=== PATIENT | female | born 1955 | race Caucasian/White ===

== ENCOUNTER 2016-03-28 05:36 | Day surgery (SDC) | payer OTHER ==
--- NOTE | 2016-03-24 08:35 | PCM.HPSURG ---
Subjective Date of Service: Mar 13, 2016 Referring Provider: Admitting Physician: Primary Care Physician: Rosalba Stearns MD Attending Physician: Jack Vera MD Chief Complaint SEE BELOW History of Present Illness Patient: Rosalinda Guerrero Date of : 1955 Visit Type: Pre Op Visit Date: 03/13/2016 10:45 AM Historian: self This 60 year old female presents for Preop MIS Ty. Segmental Decompress L2-4 + Fat Graft. History of Present Illness: 1. Preop MIS Ty. Segmental Decompress L2-4 +Fat Graft Rosalinda Guerrero 60 year old female referred by Primary Care Provider (PCP) Dr. Rosalba Stearns M.D. who presents today's date 03/13/2016 for a preoperative type of appointment concerning the decision for surgery involving METrx or minimal access surgery involving bilateral segmental decompression L2-3 & L3-4 levels from the left side & harvests of subcutaneous fat for epidural graft from separate incision secondary to a diagnosis of lumbar spinal stenosis with neurogenic claudication with related complaints of severe, intractable, & debilitating lower back pain radiating to the left >right lower extremities with numbness, & paresthesias worse with standing up straight or walking & better leaning forward or sitting down. The patient presented for reevaluation with Dr. Jack Vera M.D. on 2016 regarding progressive lower back and bilateral leg pain left greater than right. Patient's MRI scan showed evidence of severe stenosis at L2-3 and L3 4. She got marked relief for surgery at the L3-4 level with the second injection did not provide is significant relief as the first. She has undergone right knee surgery and is doing well from that surgery has been able to return back to work. At this time she would like to proceed neurosurgery on her spine at this time. According to Dr. Vera the patient has significant symptomatic lumbar spinal stenosis having failed conservative treatment indicating that the patient is a candidate for minimally invasive bilateral lumbar spinal surgical decompression at the L2-3 & L3-4. We discussed all the risks and benefits associated with surgery as well as reasonable expectations with regards to surgical outcomes & patient elected to proceed with surgery as planned. The patient denies any related complete or acute loss of control of bowel or bladder function, saddle paresthesia or anesthesia. The patient has a pertinent positive past medical, surgical and social history for cervical spinal decompression and fusion, previous lumbar decompression, right knee meniscectomy, overweight, chronic joint pain, depression, & 2 alcohol drinks per week. The patient's related complaints have been a serious detriment to their happiness and activities of daily living. Having failed conservative treatment the patient presents today for their decision for surgery appointment involving METrx or minimal access surgery involving bilateral segmental decompression L2- 3 & L3-4 levels from the left side & harvests of subcutaneous fat for epidural graft from separate incision for treatment of lumbar spinal stenosis with neurogenic claudication; related to severe, intractable, & debilitating lower back pain radiating to the left >right lower extremities with numbness, & paresthesias worse with standing up straight or walking & better leaning forward or sitting down. The procedure is scheduled to be performed by Dr. Jack Vera M.D. on 03/28/2016. Problem List: Problem Description Spinal stenosis of lumbar region Medical/Surgical/Interim History Reviewed, no change. Last detailed document date:03/13/2016. Family History: Reviewed, no changes. Last detailed document date:03/13/2016. Social History: Tobacco use reviewed. Reviewed, no changes. Last detailed document date: 03/13/2016. Allergies: Ingredient Reaction Medication Name Comment SULFA (SULFONAMIDE ANTIBIOTICS) Unknown CODEINE Nausea/Vomiting Reviewed, no changes. Review of Systems System Neg/Pos Details MS Positive Back pain, Bone/joint symptoms. MS Negative Muscle weakness. Negative Dysuria, urge incontinence and urinary incontinence. Eyes Negative Double vision and vision loss. ENMT Negative Hearing loss. Endocrine Negative Weight gain and weight loss. Integumentary Negative Mrsa and rash. Respiratory Negative Dyspnea, apnea and wheezing. Vivek/Lymph Negative Blood clots. Constitutional Negative Chills and fever. Cardio Negative Chest pain, irregular heartbeat/palpitations, leg swelling and pacemaker. GI Negative Abdominal pain, constipation, diarrhea, nausea and vomiting. Neuro Negative Dizziness, headache and seizures. Psych Negative Anxiety and depression. Vital Signs Height Time ft in cm Last Measured Height Position % 10:14 AM 5.0 7.00 170.18 03/13/2016 Weight/BSA/BMI Time lb oz kg Context % BMI kg/m2 BSA m2 10:14 AM 218.20 98.974 dressed without shoes 34.17 Blood Pressure Time BP mm/Hg Position Side Site Method Cuff Size 10:14 AM 110/68 sitting left arm manual adult large Temperature/Pulse/Respiration Time Temp F Temp C Temp Site Pulse/min Pattern Resp/ min 10:14 AM 98.0 36.7 temporal 66 regular 20 Pulse Oximetry/FIO2 Time Pulse Ox (Rest %) Pulse Ox (Amb %) O2 Sat O2 LPM Timing FiO2 % L/min Delivery Method 10:14 AM 96 Pain Scale Time Pain Score Method 10:14 AM 7/10 Numeric Pain Intensity Scale Measured By Time Measured by 10:14 AM Yeni Panchal MA Physical Exam Exam Findings Details Comments Gen.: Patient was examination and appears to be a moderate muscle skeletal discomfort HEET: Normal with full range of motion Chest : Clear P and A Heart: Regular rate and rhythm Abdomen; soft non-tender normal bowel sounds Ext.: 5/5 strength. Numbness in the L3 and L4 distribution. There is diminished patellar reflex. Negative straight leg maneuver Back: There is some mild involuntary paraspinous muscle spasm. Radiographic imaging: Review the patient's MRI scan of the lumbar spine shows evidence of severe lumbar spinal stenosis at L2-3 and L3 4. Assessment/Plan # Detail Type Description 1. Assessment Lumbar stenosis with neurogenic claudication (M48.06). 2. Assessment Preoperative examination (Z01.818). Patient Plan We including your Attending Surgeon have discussed the risks and benefits associated your scheduled procedure which you have verbally acknowledged understanding including but not limited to the possibility of an outcome that we are unable to predict or was not mentioned. 1. You are scheduled for a METrx or minimal access surgery involving bilateral segmental decompression L2-3 & L3-4 levels from the left side & harvests of subcutaneous fat for epidural graft from separate incision with Dr. Jack Vera M.D. at [facility] on 03/28/2016. 2. Check in time is 6 AM. Also please ignore instructions below if told otherwise by your preadmission nurse or if you do not take the medications listed below. 3. Nothing to eat after midnight the night before surgery. You may take all of your "approved" medications with small sips of water. Remember to take your a.m. hypertension medication if it is a beta liana and ends in "olol. Otherwise ask your doctor if you need to hold your a.m. hypertension medication. 4. No aspirin, ibuprofen, Naprosyn, or other NSAIDs starting 7 days prior to surgery. 5. Please stop Warfarin/Coumadin or other blood thinners such as Plavix, Aggrenox, or Xarelto 7 days prior to your surgical procedure and follow specific instructions from your prescribing provider. 6. Please stop Lovenox bridging in the morning one day prior to procedure. 7. Please stop Suboxone/Buprenorphine at least 4 days prior to procedure. 8. Go to the hospital today to get her preoperative testing done. Take the order form to the surgery desk on the second floor of the hospital, [facility] (main entrance next to the emergency entrance). I will notify you if there is any test results that require further workup prior to surgery. 9. Follow the instructions you were given today, use the cleansing cloths the night before as well as the morning of her surgery. 10. If you are prescribed inhalers, CPAP or BiPAP machines you use at home bring along with you to the hospital. 11. ONLY If you take medications for Diabetes: If you have an insulin pump continue lowest (typically night-time) basal rate into the a.m. If you do not have a pump check h your a.m. blood sugar and hold insulin if BS less than 100. If you are taking long-acting, intermediate acting (NPH) or 70/30 preparation : Take half on day of procedure. If you are taking ultra long-acting insulin such as glargine, Lantus either at night or in the a.m. continue as scheduled ( including day of surgery). If you take short acting regular insulin (insulin not delivered via pump) discontinue on day of procedure. 12. Please call if you have any questions before your surgery: [phone]. Today's instructions/counseling include(s) Pre-operative instructions given to the patient and or legal reimbursement representative(s) orally and in writing. 13. Our office will contact you if there are any test results that require further workup prior to surgery. Provider Plan The patient's history and examination as well as radiological findings were reviewed with Dr. Jack Vera M.D. and conveyed the patient in detail. The findings are consistent with lumbar spinal stenosis with neurogenic claudication and are most likely the cause of the patient's severe, intractable , & debilitating lower back pain radiating to the left >right lower extremities with numbness, & paresthesias worse with standing up straight or walking & better leaning forward or sitting down. The patient has failed extensive conservative treatment for this condition. The treatment options were discussed with the patient. The options include attempt to live with the condition, reattempt conservative treatment, try a pain management intervention / injection or consider a surgical intervention. We are not extremely optimistic that further conservative treatment, pain management intervention and/or injection will adequately resolve the patient's symptoms of severe, intractable, & debilitating lower back pain radiating to the left >right lower extremities with numbness, & paresthesias worse with standing up straight or walking & better leaning forward or sitting down. Therefore we recommend METrx or minimal access surgery involving bilateral segmental decompression L2-3 & L3-4 levels from the left side & harvests of subcutaneous fat for epidural graft from separate incision. The patient was provided/offered educational materials pertaining to their diagnosis and the above discussed procedure. We discussed the risks and benefits associated with this surgery. A spine model was used to explain the nature of this type of surgery. The risk of the required anesthesia was also mentioned including but not limited to organ failure such as heart attack, pneumonia and stroke even . The risk of this type of surgery was also mentioned. Including but not limited to an unsuccessful outcome, residual symptoms, referred or radiating posterior spinal myofascial inflammatory pain or spasm, post operative instability, instrumentation failure, sensory changes, blood loss, blood clots, wound infection, spinal cord or nerve damage, CSF or lymph leak, damage to neighboring structures such as the abdominal vasculature, bowel, ureter, and bladder resulting in temporary or permanent dysfunction, even disability, paralysis, and . The recovery of this type of surgery was also mentioned. The chances for improvement of the neurogenic claudication related symptomatology at one year is 70%. The chances of improvement of local mechanical lower back pain is 50%. The patient verbalized understanding all the risks and benefits, knowing that it is impossible to predict or guarantee every surgical outcome; and would like to proceed with the above discussed procedure anyways. Surgery is scheduled for 03/28/[address] [facility] preoperative screening tests, medicine restrictions, and logistical protocols apply. Any preoperative testing is within normal limits to undergo the above discussed procedure unless otherwise noted in the medical record. Medications (added, continued or stopped this visit): Start Date Medication Directions Stop Date 03/27/2016 baclofen 10 mg tablet take 1 tablet by oral route every 8 hours as needed for spasm 03/15/2015 meloxicam 7.5 mg tablet take 1 tablet by oral route 2 times every day with food prn hand pain 02/29/2016 meloxicam 7.5 mg tablet take 1 tablet by oral route 2 times every day 03/27/2016 Percocet 5 mg-325 mg tablet take 1 - 2 tablet by oral route every 4 - 6 hours as needed for pain Prozac take 2 capsule by oral route every day Vitamin B-12 Vitamin D3 1,000 unit capsule 03/15/2015 Voltaren 1 % topical gel apply (2G) by topical route 2 times every day to the affected area(s) Counseling/Educational Factors: Counseling / educational factors reviewed. Counseling / educational factors reviewed. This is a visit of 60 minutes. 50 minutes were spent counseling. The patient was checked out at 11:55 AM. This document may have been created using voice recognition software or other electronic means and may contain inadvertent speaking unit assembler errors. Provider: Gordy BROUSSARD 03/13/2016 12:26 PM Document generated by: Gordy Mtz 03/13/2016 12:25 PM CC Providers: [facility]ba Roberto [facility] [phone] [id number] [place] [address] w kim reese i arlene i michael s Delmi romeo Allergy Allergies: Coded Allergies: Sulfa (Sulfonamide Antibiotics) (Verified Allergy, Unknown, 10/21/15) codeine (Verified Allergy, Unknown, 10/21/15) Social History Hx Alcohol Use: Yes (OCCASIONALLY) Hx Substance Use: No PMH HEENT History HEENT History: Denies:: Abnormal Airway Cataracts Difficult Intubation Dysphagia Hearing Problem Sinus Problem TMJ Cardiovascular History History of Heart Problems?: No Cardiovascular History: Denies:: AICD Atrial Fibrillation Cardiac Surgery Chest Pain Congestive Heart Failure Edema Heart Murmur Hypertension Irregular Heartbeat Pacemaker Respiratory History of Respiratory Problem: Yes Respiratory History: Positive for:: Asthma (INHALERS) Denies:: COPD Emphysema Oxygen Administration Pneumonia Tuberculosis Use of C-PAP Machine Neurological History Neurological History: Denies:: CVA Dizziness Headaches Multiple Sclerosis Parkinson's Disease Seizures Gastrointestinal History HX of GI Problems?: No Gastrointestinal History: Denies:: Cirrhosis Gastroesphageal Reflux Gastrointestinal Bleeding Heartburn Hepatitis Hiatal Hernia Rectal Bleeding Genitourinary History Hx of Gu Problems?: No Genitourinary History: Denies: Kidney Stones Urinary Tract Infection Female/Male History Reproductive History Female: Denies: Currently ? (hysterectomy) Problems with Breasts? Skin History Skin History: Denies:: History Skin Disorders? Pressure Ulcers Musculoskeletal History Hx Musculoskeletal Problems?: Yes Musculoskeletal History: Positive for:: Back Injury (lumbar stenosis- failed TAHIR- left leg more sx than right, prior sx) Musculoskeletal Trauma (right knee current admission problem) Denies:: Degenerative Joint Joint Replacement Systemic Lupus Psycho Social History Psycho Social History: Positive for:: Hx Depression (MEDS FOR CONTROL) Other History Hx Any Other Health Problems?: Yes Other History: Denies:: Cancer Thyroid Disease Diabetes: No Social History Hx Alcohol Use: Yes (OCCASIONALLY)Hx Substance Use: No Smoking Status: Former Smoker Gordy Mtz PA-C Mar 24, 2016 08:35
[2016-03-28] VITALS (15 sets, daily range): BP systolic 91–131; BP diastolic 50–103; PULSE 59–85; RESP 13–20; O2SAT 92–100
[~2016-03-28] VITALS: Ht 170.2 cm; Wt 98.1 kg
[2016-03-28] MEDS: Lactated Ringer's 1,000 ML IV SCH ×3 (05:00→07:39)
[~2016-03-28 05:36] MED LIST: ALBU8.5H2 INHALATION; BACL10TA PO; BECL8.7A6 INHALATION; Bacitracin 50,000 unit Inj IRRIGATION ONE; Bupivacaine Liposome 1.3% 20 mL Inj INFILTRATE ONE; CHOL10008 PO; CYAN500T53 SL; CeFAZolin Inj 2 GM in IV Premix 1 EACH IV ONE; DICL100G8 TOPICAL; FLUO10CA30 PO; MELO-259 PO; OXYC1TAB24 PO; Thrombin Powder 5,000 Unit TOPICAL ONE
[2016-03-28] MEDS ORDERED: Propofol 10,000 mCg/mL 20 mL Inj ONE (05:37)
[2016-03-28] MEDS ORDERED: Ondansetron 2 mg/mL 2 mL Inj ONE (05:37)
[2016-03-28] MEDS ORDERED: Dexamethasone 4 mg/mL Inj ONE ×2 (05:37)
[2016-03-28] MEDS ORDERED: Ketamine 10 mg/mL 20 mL Inj ONE (05:37)
[2016-03-28] MEDS ORDERED: EPHEDrine/NS 5 mg/mL 5 mL Syringe ONE (05:37)
[2016-03-28] MEDS ORDERED: Glycopyrrolate 0.2 mg/mL 5 mL Inj ONE (05:37)
[2016-03-28] MEDS ORDERED: Neostigmine 1 mg/mL 5 mL Inj ONE (05:37)
[2016-03-28] MEDS ORDERED: fentaNYL-PF 50 mCg/mL 2 mL Inj ONE (05:37)
[2016-03-28] MEDS ORDERED: Rocuronium 10 mg/mL 5 mL Inj ONE (05:37)
[2016-03-28] MEDS ORDERED: CeFAZolin Inj 2 gm / 50mL D5W IV ONE (05:55)
[2016-03-28] MEDS ORDERED: Bacitracin 50,000 unit Inj ONE (07:21)
[2016-03-28] MEDS ORDERED: Bupivacaine Liposome 1.3% 20 mL Inj ONE (07:21)
[2016-03-28] MEDS ORDERED: Thrombin Powder 5,000 Unit TOPICAL ONE ×2 (07:21→09:43)
--- NOTE | 2016-03-28 07:31 | PCM.HPANE ---
Patient Data Date of Service: Mar 28, 2016 Surgeon Admitting Provider: Attending Provider:Jack Vera MD Primary Care Physician:Rosalba Stearns MD Other Provider: Reason for Visit Lumbar Stenosis With Neurogenic Claudication Ht/WT & BMI Height (Feet): 5 Height (Inches): 7.00 Weight (Kilograms): 98.1 Body Mass Index 33.00 Allergies Coded Allergies: Sulfa (Sulfonamide Antibiotics) (Verified Allergy, Unknown, UNKNOWN, ) codeine (Verified Adverse Reaction, Severe, N&V, 03/24/16) Past Anesthesia History Anesthesia History: Positive for:: Anesthesia Reactions (PONV), Denies:: Abnormal Airway, Difficult Intubation, Fam Anesthesia Reaction, Fam Malignant Hypertherm, Malignant Hyperthermia Diabetes History Hx Diabetes?: No Current Bedside Blood Glucose: 96 MRSA MRSA: No Medications Home Meds Incl Beta Jeremy: No Reported Medications Baclofen 10 Mg [id number] Mg PO TID PRN PRN Ref 0 03/24/16 oxyCODONE-Acetaminophen 5-325 mg 1 Each Tablet1-2 Tab PO Q4-6H PRN For Pain Ref 0 03/24/16 Diclofenac Gel (Voltaren Gel)100 Gm Tube1 Applic TOPICAL BID #1 TUBE 01/10/16 Cholecalciferol (Vitamin D3) (Vitamin D3)1,000 Unit Tab.chew1,000 Unit PO DAILY 01/10/16 Cyanocobalamin (Vitamin B-12) (Vitamin B-12)500 Mcg Tab.subl1,000 Mcg SL DAILY 01/10/16 Fluoxetine (Prozac)10 Mg [id number] Mg PO DAILY Ref 0 01/10/16 Meloxicam 7.5 Mg Tablet7.5 Mg PO BID 30 Days Ref 0 01/10/16 Beclomethasone Dipropionate (Qvar)8.7 Gm Aer.w.adap1 Puff INHALATION BID #8.7 GM 01/10/16 Albuterol HFA (Proair HFA)8.5 Gm Hfa.aer.ad2 Puffs INHALATION Q4H PRN For Shortness of Breath #1 INHALER 01/10/16 History History of ENT Problems?: No HEENT History: Denies:: Abnormal Airway Cataracts Difficult Intubation Dysphagia Hearing Problem Sinus Problem TMJ Denture Type: Partial- Upper Hx of Heart Problems?: No Cardiovascular History: Positive for:: Irregular Heartbeat (Ventricular Trigeminy by 12l preop. Pt denies awareness or systemic Sx) Denies:: AICD Atrial Fibrillation Cardiac Surgery Chest Pain Congestive Heart Failure Edema Heart Murmur Hypertension Pacemaker Hx of Respiratory Problem?: Yes Respiratory History: Positive for:: Asthma (CTA DOS) Use of Inhalers / NEBS Denies:: COPD Emphysema Oxygen Administration Pneumonia Tuberculosis Use of C-PAP Machine Hx Neurologic Problems?: Yes Neurological History: Denies:: CVA Dizziness Headaches Multiple Sclerosis Parkinson's Disease Seizures Other Neurological Pertinent: C/OF PERIPHERAL POLYNEUROPATHY Hx of GI Problems?: Yes Gastrointestinal History: Denies:: Cirrhosis Gastroesphageal Reflux Gastrointestinal Bleeding Heartburn Hepatitis Hiatal Hernia Rectal Bleeding Other GI Pertinent History: S/P GASTRIC BYPASS Hx of Problems?: No Genitourinary History: Denies:: Kidney Stones Urinary Tract Infection Female Hx: Denies:: Currently Problems with Breasts? Skin History: Denies:: History Skin Disorders? Pressure Ulcers Hx Musculoskeletal Problems?: Yes Musculoskeletal History: Positive for:: Back Injury (S/P FAILED TAHIR'S,ACDF, LUMBAR DECOMPRESSION) Musculoskeletal Trauma (S/P RT KNEE MENISECTOMY,SHOULDER RPR) Denies:: Degenerative Joint Joint Replacement Systemic Lupus Hx of Psycho/Social Problems?: Yes Psycho Social History: Positive for:: Hx Depression Hx Surgeries?: Yes (BACK , NECK, SHOULDER, HYST, CTS BILAT, GASTRIC BYPASS, RT KNEE MENISECTOMY) Hx Any Other Health Problems?: Yes Other History: Positive for:: Thyroid Disease (BENIGN THYROID NODULE S/P NEEDLE BX) Denies:: Cancer Endocrine Disease Hospitalization History Blood Transfusions: Denies:: Blood Transfusions Hx Diabetes: NoBedside Blood Glucose: 96 Hx Alcohol Use: YesAlcoholic Drinks Per Day: 2/WEEKHx Substance Use: No Smoking Status: Former Smoker Have You Smoked inLast 12 mo: No Stop/Bang Treated for Sleep Apnea?: No Do You Have a CPAP Machine?: No S-Snoring: Do You Snore Loudly: No T-Tired: feel tired, fatigued: No O-Obsered: Observed not breath: No P-Blood Pressure: treated: No B- Body Mass Index > 35 kg/m2: No A- Age over 50: Yes N- Neck Large Circumference: No G- Gender Male: No NAZANIN Total Score: 1 NAZANIN Risk Assessment: Low Risk, <3 Yes Risk Assessment Category Category 1A: Patient has history of documented sleep apnea, and HAS NOT received any narcotic, sedative or anesthesia administration during this stay. Category 1B: Patient has history of documented sleep apnea, and HAS received any narcotic , sedative or anesthesia administration during this stay Category 2: Patient has SUSPECTED Obstructive Sleep Apnea, and HAS received any narcotic , sedative or anesthesia administration during this stay. Category 3: Patient has SUSPECTED Obstructive Sleep Apnea and HAS NOT received narcotic, sedative or anesthesia administration during this stay. Category 4: Outpatient in Procedural Areas with known sleep apnea or who screen positive for High Risk via the STOP/BANG questionnaire. Exam Exam Vital Signs Vital Signs Date Time Temp Pulse Resp B/P Pulse Ox O2 Delivery O2 Flow Rate FiO2 03/28/16 06:21 36.4 64 18 115/75 95 Room Air General Appearance: Alert, Oriented X3, Cooperative, No Acute Distress HEENT/AIRWAY: MP 2 (Missing Incisor, Right lateral incisor, canine caps) Lungs: Clear to Auscultation, Normal Air Movement Heart: Exam Unremarkable, Normal S1, Normal S2, No Murmurs/Rubs/Gallops Meds/Labs/Diagnostics Admission Meds Current Medications Lactated Ringer's (Lr) 1,000 ml @ 120 mls/hr Q8H20M IV Last administered on 05:42; Start 03/28/16 at 05:00; Stop 03/28/16 at 13:19 Scopolamine (Transderm-Scop Patch) 1.5 mg STK-MED ONCE TOPICAL Last administered on 03/28/16 07:17; Start 03/28/16 at 07:13; Stop 03/28/16 at 07:16 ; Status DC Bedside Blood Glucose: 96 Plan Impression Patient chart reviewed, patient interviewed and anesthestic plan with risks, benefits, and alternatives discussed, and informed consent obtained. NPO Status: 10pm ASA Physical Status: ASA2 Mod Systemic Disease Anesthetic Plan: GA Bene/Risks/Altern/Consents: Yes HP Complete Prior to Induction: Yes (TIVA planned due to PONV Hx) Donny Dunham DO Mar 28, 2016 07:31
[2016-03-28] MEDS ORDERED: Bupivacaine-MPF 0.25%/EPI 30 mL Inj INJ ONE (08:14)
--- NOTE | 2016-03-28 08:41 | DRSVH ---
PROCEDURE: X-RAY LUMBAR SPINE, 2 OR 3 VIEW INDICATIONS: L2-3/L3-4 DECOMPRESSION TECHNIQUE: 2 views of the lumbar spine were acquired. COMPARISON: None. FINDINGS: Bones: AP and lateral spot images in surgery shows a posterior plate marker at the L3-4 disc level. T his was called to Dr. Vera in surgery at 0837 hrs. on 03/28/2016 and the images appropriately labeled . IMPRESSION: Localization images in surgery Dictated by: José Miguel Cheng M.D. on 03/28/2016 at 8:36 Approved by: José Miguel Cheng M.D. on 03/28/2016 at 8:39
[2016-03-28] MEDS ORDERED: Lactated Ringer's 1,000 ML IV SCH (08:46)
[2016-03-28] MEDS ORDERED: Lactated Ringer's 500 ML IV PRN (08:46)
[2016-03-28] MEDS ORDERED: EPHEDrine Sulfate 50 mg/mL Inj IVPUSH PRN (08:50)
[2016-03-28] MEDS ORDERED: HYDROmorphone 1 mg/mL Inj IVPUSH PRN ×2 (08:50→11:20)
[2016-03-28] MEDS ORDERED: fentaNYL-PF 50 mCg/mL 2 mL Inj IVPUSH PRN (08:50)
[2016-03-28] MEDS ORDERED: Ondansetron 2 mg/mL 2 mL Inj IVPUSH PRN ×3 (08:50→11:20)
[2016-03-28] MEDS ORDERED: Phenylephrine 10,000 mCg/mL Inj IVPUSH PRN (08:50)
[2016-03-28] MEDS ORDERED: Dexamethasone 4 mg/mL Inj IVPUSH PRN (08:50)
[2016-03-28] MEDS ORDERED: Labetalol 5 mg/mL 4 mL Inj IV PRN (08:50)
[2016-03-28] MEDS ORDERED: Atropine 0.4 mg/mL Inj IVPUSH PRN (08:50)
[2016-03-28] MEDS ORDERED: MetoCLOpramide 5 mg/mL 2 mL Inj IVPUSH PRN (08:50)
[2016-03-28] MEDS ORDERED: Sodium Chloride Bacteriostatic 30 mL Inj INJ ONE (08:57)
[2016-03-28] MEDS ORDERED: Lactated Ringer's 1,000 ML IV ONE (10:31)
[2016-03-28] MEDS ORDERED: Magnesium Hydroxide 10 mL Oral Concentration PO PRN (11:20)
[2016-03-28] MEDS ORDERED: Promethazine Inj 12.5 MG in Dextrose 5%-Pha MIX 50 ML IV PRN (11:20)
[2016-03-28] MEDS ORDERED: Polyethylene Glycol (PEG) 17 Gm Powder PO PRN (11:20)
[2016-03-28] MEDS ORDERED: Sodium Biphos-Phos 133 mL Enema RECTAL PRN (11:20)
[2016-03-28] MEDS ORDERED: Senna-Docusate 8.6-50 mg Tablet PO PRN (11:20)
[2016-03-28] MEDS ORDERED: hydrOXYzine Pamoate 25 mg Capsule PO PRN (11:20)
[2016-03-28] MEDS: Acetaminophen IV 1,000 MG in IV Premix 1 EACH IV SCH ×3 (11:20→23:23)
--- NOTE | 2016-03-28 11:24 | PCM.ANEP1 ---
Post Anesthesia Phase 1 PACU Phase 1 Assessment Date of Service: Mar 28, 2016 Vital Signs Vital Signs Date Time Temp Pulse Resp B/P Pulse Ox O2 Delivery O2 Flow Rate FiO2 03/28/16 06:21 36.4 64 18 115/75 95 Room Air Anesthetic Administered: GA Level of Alertness: Drowsy, not talking RENE's with Equal Strength: Yes (Apparently aty baseline with 4-limb spontaneous motion) Pain: No Nausea or Vomiting: No Oxygen Delivery: Simple Mask (6l) Lungs: Clear to Auscultation, Normal Air Movement Dermatome Level: Full Sensation (@ baseline) Donny Dunham DO Mar 28, 2016 11:24
[2016-03-28] MEDS: Dexamethasone 4 mg/mL Inj IVPUSH SCH ×3 (11:55→20:30)
--- NOTE | 2016-03-28 13:09 | PCM.ANEP2 ---
Post Anesthesia Evaluation ASA/CMS Post Anesthesia Date of Service: Mar 28, 2016 VS in Patient's Normal Range?: Yes Resp Stable; Airway Patent?: Yes CV Function & Hydration Stable: Yes Mental Status Recovered?: Yes Pain control Satisfactory?: Yes N/V Control Satisfactory?: Yes Donny Dunham DO Mar 28, 2016 13:09
--- NOTE | 2016-03-28 14:59 | NUR ---
Post op Transfer Pt was admitted to [facility] room 1026 at 1459 via pt bed. A&Ox3. Pain rated at 6/10. Pt states that pain is at a tolerable level. Pt O2 sats WNL on RA. Pt up to the bathroom to void FWW SBA. Tolerated activity okay. NANCY drain to suction. Dressings on back are C/D/I. Care continues.
[2016-03-28] MEDS ORDERED: Albuterol 2.5 mg/3 mL Inhalation Solution NEB PRN (16:00)
[2016-03-28] MEDS: 0.9% Sodium Chloride 1,000 ML IV SCH ×2 (16:13→20:26)
[2016-03-28] MEDS: CeFAZolin Inj 2 GM in IV Premix 1 EACH IV SCH ×2 (17:23→23:45)
--- NOTE | 2016-03-28 17:50 | NUR ---
Diet Pt tolerating pudding, crackers and water well. Advanced dinner to general diet. Encouraged pt to go slow. Pt denies any nausea and does not exhibit any s/s of aspiration.
[2016-03-28] MEDS: Senna-Docusate 8.6-50 mg Tablet PO SCH (20:28)
[2016-03-28] MEDS: Fluticasone 100 mCg Inhaler INHALATION SCH (20:29)
--- NOTE | 2016-03-28 20:37 | NUR ---
Level of activity The patient states she has a new onset of weakness and numbness in her left leg after her surgery. The patient's gait is unsteady, requires 1 person moderate assist to the bedside commode. Notified RN about new symptoms in leg.
--- NOTE | 2016-03-28 20:57 | NUR ---
Neuro Pt c/o left leg numbness. She is able to walk but her foot feels "strange". Pt is aware of hot/cold/pressure to her left foot but she states it is numb. I spoke to Dr Huddleston re her complaint. No changes to plan of care. He stated that the numb feeling can happen post operatively when the pain is decreased Pt confirmed that her pain is significantly less WIll cont to monitor. Care ongoing
--- NOTE | 2016-03-28 21:00 | NUR ---
Blood pressure Pt's blood pressure is 98/60. Restarted IVF at orginal rate of 110cc/hr of NS. ENcouraged pt to drink fluids. She is asymptomatic. Care ongoing
[2016-03-29 00:45] VITALS: BP 103/68; PULSE 62; RESP 20; O2SAT 96
--- NOTE | 2016-03-29 00:53 | OP ---
[address] [address] OPERATIVE REPORT PATIENT: ANALIA HENDERSON : 1955 MR#: [id number] ADMIT: 03/28/2016 JOB ID: [id number] DATE OF SURGERY: 03/28/2016 PREOPERATIVE DIAGNOSIS(ES): Symptomatic lumbar spinal stenosis, left greater than right, secondary to acquired spinal lateral recess stenosis, L2-L3 and L3-L4. POSTOPERATIVE DIAGNOSIS(ES): Symptomatic lumbar spinal stenosis, left greater than right, secondary to acquired spinal lateral recess stenosis, L2-L3 and L3-L4. OPERATIVE PROCEDURE: 1. METRx microscopic bilateral lumbosacral decompression, L2-L3 and L3-L4, with lateral recess decompression of the L2, L3, and L4 nerve roots bilaterally. Approach from the left. 2. Placement of epidural fat graft obtained from a separate incision. 3. Intraoperative fluoroscopy less than one hour. SURGEON: Jack Vera MD DIGITAL ANALYST: Gordy Mtz PA-C ANESTHESIA: General endotracheal. COMPLICATIONS: None. ESTIMATED BLOOD LOSS: Approximately 50 cc. The patient did not require any transfusion. DRAINS: #10 Niuean drain. SPECIMENS: None. TOURNIQUET: None. FINDINGS AT THE TIME OF SURGERY: Severe acquired spinal and lateral recess stenosis at the L3-L4 level, and modest to severe at L2-L3. Bilateral lumbosacral decompression was performed at both levels, with lateral recess decompression at the L2 and L3 nerve roots bilaterally. No evidence of any CSF leak or durotomy. There was evidence of bulging of the disc. No diskectomy was required. INDICATION: A 60-year-old female, who has been having increasing lower back and bilateral leg pain, worse with standing and walking, made better with sitting down. After failure of conservative measures, the patient was seen for a neurosurgical evaluation and felt to have symptomatic lumbar spinal stenosis, most prevalent at the L3-L4 level. She has had previous decompression at 4-5. The patient had epidural steroid injection with Dr. Vega, which provided significant improvement of her symptoms. She subsequently then wanted to proceed with surgery, and admitted at this time for minimal access bilateral lumbosacral decompression at the L2-L3 and L3-L4 levels. Chances for symptomatic improvement would be 70% at one year. The patient acknowledged understanding and wanted to proceed. OPERATION/PROCEDURE: The patient was identified in the preop area. L2-L3 and L3-L4 were marked on the patient's back on the left side. The patient's history, examination, medications, allergies, and labs were reviewed. She was then taken to the operating room where she underwent general endotracheal anesthesia without complications. She was given 2 g of just Ancef. ABIs were placed on the lower extremities. The patient was seated in the prone position on the Shawn frame in a fixed position. The patient's extremities were properly padded in position. The lower back was then prepped and draped in the usual sterile fashion for a minimal access decompression. After appropriate prepping and draping, the appropriate time-out of the OR was performed, confirming the patient's name, date of , planned procedure, and the presence of appropriate instrumentation. The patient's NAZANIN, beta block, diabetic and MRSA status was reviewed. Antibiotic administration, DVT prophylaxis and appropriate imaging on the screen was confirmed. The skilled assistance of the PA, Gordy Mtz, was necessary for successful completion of the case. He was essential for the proper positioning, retraction of the thecal sac and nerve roots, and general safety of the patient. Once the time-out was completed, a spinal needle was inserted adjacent to the spinous process of L2-L3 on the left. Intraoperative fluoroscopy verified the level. It was then marked on the patient's back. It was then moved to the L3-L4 level and verified fluoroscopically, and marked on the back. The needle was removed, and the left paramedian and soft tissue was infiltrated with 0.25% Marcaine with epinephrine. After infiltration, a left paramedian incision was carried down through the skin and subcutaneous tissue. Subcutaneous fat grafts were obtained. A 2nd incision was made, carried down through the skin and subcutaneous tissue, down to the level of the lumbodorsal fascia. First blunt dilating operating tube was then placed at the L3-L4 level. Sequential dilations were taken until a 70 x 22 mm operating tube was over the L3-L4 disc space on the left. This was then secured using articulating arm. AP views showed that the operating tube was adjacent to the spinous process of L3 and L4. L3-L4 was verified by Radiology. Once fluoroscopy was removed, the operating microscope was brought into place. Overlying soft tissue was removed using Bovie cautery and straight pituitary forceps. High-speed drill was then used to thin the inferior lamina of L3 and the superior lamina of L4. A generous hemilaminotomy was performed with lateral recess decompression of the L3 and L4 nerve roots. There was bulge in the disc and severe compression of the exiting L4 nerve root. There was evidence of previous steroid injection at that level. Ligamentum flavum was removed using angled curettes and Kerrison rongeur. Once decompression was completed on the patient's left side, tube was then tilted to the right, and decompression of the central canal on the right side was performed, again using angled curettes, high-speed and Kerrison rongeur, decompression the L3 and L4 nerve roots, as well as the central canal. No evidence of CSF leak or durotomy. Hemostasis was achieved using 2-point cautery, Gelfoam and cottonoids, as well as FloSeal. Once hemostasis was achieved, the tube was then migrated superiorly, with further removal of the lamina of L3 on the left. A complete hemilaminectomy was performed, decompression on the left. The tube was then tilted and decompression of the central canal and right side was performed to re-expand the thecal sac. The tube was then migrated to the L2-L3 level, where hemilaminotomy at L2 was performed, with lateral recess decompression of the L2 and L3 nerve roots on the left side. The tube was then tilted to the right, and decompression of the central canal on the right side was performed, decompressing the L2 and L3 nerve roots. At that point, hemostasis was achieved using 2-point cautery, Gelfoam, cottonoids and FloSeal. Once hemostasis was achieved, fat graft was placed, and then the exposed thecal sac was covered with Surgicel gauze. The tube was then migrated to the L3-L4 level, and suctioning of debris was undertaken, with irrigation. The 2nd fat graft was placed, and then the exposed thecal sac was covered with Surgicel gauze. The tube was carefully removed, coagulating bleeding points. Once it was removed, a #10 Niuean drain was placed deep into the wound, brought out through a separate stab incision, connected to bulb suction. The fascial layer was then reapproximated using interrupted 0 Vicryl suture. The skin and subcutaneous layer was infiltrated with long-acting local anesthetic. The subcutaneous layer was then reapproximated using interrupted 3-0 Vicryl suture after irrigation. The skin was then closed using 4-0 Vicryl suture in the subcuticular fashion. The incision was then dry and clean. This was followed by Steri-Strips. It was then covered with a sterile Telfa dressing, secured with benzoin and paper tape. A sterile Telfa dressing was applied, as well as a drain dressing. This was then secured using benzoin and paper tape. The patient was then transferred to a stretcher, awakened, extubated, and taken to the [facility] in stable condition. The patient tolerated the procedure well without any complications. All sponge and needle counts were correct x2. Estimated blood loss was approximately 50 cc.
[2016-03-29] MEDS: Dexamethasone 4 mg/mL Inj IVPUSH SCH ×2 (02:22→08:57)
[2016-03-29 05:31] VITALS: BP 101/55; PULSE 71; RESP 20; O2SAT 97
[2016-03-29] MEDS: 0.9% Sodium Chloride 1,000 ML IV SCH (05:32)
[2016-03-29] MEDS: Acetaminophen IV 1,000 MG in IV Premix 1 EACH IV SCH ×2 (05:37→11:32)
[2016-03-29] MEDS: Senna-Docusate 8.6-50 mg Tablet PO SCH (08:56)
[2016-03-29] MEDS: Fluticasone 100 mCg Inhaler INHALATION SCH (08:57)
--- NOTE | 2016-03-29 09:38 | PCM.DISURG ---
Surgical Discharge Instruction Date of Service Mar 29, 2016 Dates of Hospitalization Date of Hospital Admission Patient was bed status 03/28/2016 Providers Admitting Physician: Primary Care Physician: Rosalba Stearns MD Attending Physician: Jack Vera MD Discharge Diagnosis Discharge Diagnosis S/P METRx microscopic bilateral lumbosacral decompression, L2-L3 & L3-L4, with lateral recess decompression of the L2, L3, & L4 nerve roots bilaterally; approaching from the left, with placement of epidural fat graft obtained from a separate subcutaneous incision. Post Operative diagnosis Status post METRx microscopic bilateral lumbosacral decompression, L2-L3 & L3-L4 , with lateral recess decompression of the L2, L3, & L4 nerve roots bilaterally ; approaching from the left, with placement of epidural fat graft obtained from a separate subcutaneous incision Additional Instructions Discharge Instructions Lumbar Decompression Instructions What is my recovery like? The hospital stay is usually overnight with discharge the next day. A lumbar brace is worn for comfort only. What are my restrictions? You should not lift anything heavier than five pounds. You should not perform any excessive bending from the waist or twisting movements. Can I Shower? You may shower when you go home. You must remove the outside dressing on the 7th day after surgery, or change as needed if soiled or saturated (replacing new sterile gauze & water proof dressing) otherwise leave alone. The remaining small pieces of tape (steri-strips) directly on top of the incision may get wet. The steri-strips will fall off on their own. Can I drive? No, you should not drive until specifically given permission from your Doctor in a follow up appointment. Most Patient's can drive in 2-3 weeks if they are not taking narcotic pain medications or muscle relaxers. You may ride in a car, but should avoid trips longer than two hours in duration. When can I return work / sports? Your Doctor will discuss your return to work with you on your first postoperative follow-up appointment. Most patients may return to work within 2 weeks for sedentary jobs. More physically demanding jobs may require 3-6 months of healing before such work can be considered. When should I call the doctor? You should call your Doctor or go to the Emergency Department if you develop chest pain, shortness of breath, a temperature greater than 101.5 F, severe uncontrolled pain or weakness, loss of bowel or bladder function, choking, lots or drainage, pus discharge or constipation. Instructions Regarding Comfort & Pain Medication Use: During the recovery period , even with the use of pain medication, you may experience pain at the site of surgery. You may also have the same type of pain you had before surgery. Please use your pain scale as a guide for taking your pain medication. When your pain is greater than 4 out of 10, or when your pain reaches your personal tolerable level of pain, take your pain medication as prescribed. Use your pain medication on an 'as needed' basis. This means if your pain level is within your tolerable level of pain you DO NOT need to take the medication. As you get better, you will notice you can increase the time interval between doses and decrease the number of tablets you are taking, gradually taking less and less pain medication. Taking pain medication when it is not necessary (for example when your pain is tolerable or acceptable) can result in dangerous side effects and over- sedation. Signs and symptoms of over-sedation include: drowsiness, excessive sleeping, slow or difficult breathing, slurred speech, impaired thinking, confusion, impaired motor coordination. If you have any of these symptoms stop taking the medication and immediately contact your doctor. IF SYMPTOMS ARE LIFE THREATENING CALL 911. To decrease pain and swelling, frequently apply an ice pack for 20 min intervals with at least one hour off. When to take Acetaminophen for pain? If you don't have liver problems, allergies and/or Tylenol is not in your current pain medication. Take Extra Strength Tylenol 500mg 2 tabs by mouth every 6 hours as needed for pain. DO NOT EXCEED 8 TABS PER DAY. Additional Instructions The patient was given specific instructions to take precautions looking out for signs of infection & according falls. Follow Up Plan Follow Up Plan Follow-up physician human resources executive assistant in outpatient neurosurgical clinic in 1 week for wound check. Follow-up Provider (F9): Gordy Mtz PA-C Additional Information Attending Statement All documentation reviewed & orders authorized by Dr. Jack Vera M.D. Gordy Mtz PA-C Mar 29, 2016 09:32
--- NOTE | 2016-03-29 09:55 | PCM.DC.SUR ---
Discharge Summary Date of Service: Mar 29, 2016 Date of Hospital Admission: Outpatient with bed status 03/28/2016 Date of Operation(s): 03/28/2016 Date of Discharge: 03/29/2016 Diagnosis at Time of Discharge Status post METRx microscopic bilateral lumbosacral decompression, L2-L3 & L3-L4 , with lateral recess decompression of the L2, L3, & L4 nerve roots bilaterally ; approaching from the left, with placement of epidural fat graft obtained from a separate subcutaneous incision Problems: Operation METRx microscopic bilateral lumbosacral decompression, L2-L3 & L3-L4, with lateral recess decompression of the L2, L3, & L4 nerve roots bilaterally; approaching from the left, with placement of epidural fat graft obtained from a separate subcutaneous incision Brief History and Physical: Patient: Rosalinda Guerrero Date of : 1955 Visit Type: Pre Op Visit Date: 03/13/2016 10:45 AM Historian: self This 60 year old female presents for Preop MIS Ty. Segmental Decompress L2-4 + Fat Graft. History of Present Illness: 1. Preop MIS Ty. Segmental Decompress L2-4 +Fat Graft Rosalinda Guerrero 60 year old female referred by Primary Care Provider (PCP) Dr. Rosalba Stearns M.D. who presents today's date 03/13/2016 for a preoperative type of appointment concerning the decision for surgery involving METrx or minimal access surgery involving bilateral segmental decompression L2-3 & L3-4 levels from the left side & harvests of subcutaneous fat for epidural graft from separate incision secondary to a diagnosis of lumbar spinal stenosis with neurogenic claudication with related complaints of severe, intractable, & debilitating lower back pain radiating to the left >right lower extremities with numbness, & paresthesias worse with standing up straight or walking & better leaning forward or sitting down. The patient presented for reevaluation with Dr. Jack Vera M.D. on 2016 regarding progressive lower back and bilateral leg pain left greater than right. Patient's MRI scan showed evidence of severe stenosis at L2-3 and L3 4. She got marked relief for surgery at the L3-4 level with the second injection did not provide is significant relief as the first. She has undergone right knee surgery and is doing well from that surgery has been able to return back to work. At this time she would like to proceed neurosurgery on her spine at this time. According to Dr. Vera the patient has significant symptomatic lumbar spinal stenosis having failed conservative treatment indicating that the patient is a candidate for minimally invasive bilateral lumbar spinal surgical decompression at the L2-3 & L3-4. We discussed all the risks and benefits associated with surgery as well as reasonable expectations with regards to surgical outcomes & patient elected to proceed with surgery as planned. The patient denies any related complete or acute loss of control of bowel or bladder function, saddle paresthesia or anesthesia. The patient has a pertinent positive past medical, surgical and social history for cervical spinal decompression and fusion, previous lumbar decompression, right knee meniscectomy, overweight, chronic joint pain, depression, & 2 alcohol drinks per week. The patient's related complaints have been a serious detriment to their happiness and activities of daily living. Having failed conservative treatment the patient presents today for their decision for surgery appointment involving METrx or minimal access surgery involving bilateral segmental decompression L2- 3 & L3-4 levels from the left side & harvests of subcutaneous fat for epidural graft from separate incision for treatment of lumbar spinal stenosis with neurogenic claudication; related to severe, intractable, & debilitating lower back pain radiating to the left >right lower extremities with numbness, & paresthesias worse with standing up straight or walking & better leaning forward or sitting down. The procedure is scheduled to be performed by Dr. Jack Vera M.D. on 03/28/2016. Problem List: Problem Description Spinal stenosis of lumbar region Medical/Surgical/Interim History Reviewed, no change. Last detailed document date:03/13/2016. Family History: Reviewed, no changes. Last detailed document date:03/13/2016. Social History: Tobacco use reviewed. Reviewed, no changes. Last detailed document date: 03/13/2016. Allergies: Ingredient Reaction Medication Name Comment SULFA (SULFONAMIDE ANTIBIOTICS) Unknown CODEINE Nausea/Vomiting Reviewed, no changes. Review of Systems System Neg/Pos Details MS Positive Back pain, Bone/joint symptoms. MS Negative Muscle weakness. Negative Dysuria, urge incontinence and urinary incontinence. Eyes Negative Double vision and vision loss. ENMT Negative Hearing loss. Endocrine Negative Weight gain and weight loss. Integumentary Negative Mrsa and rash. Respiratory Negative Dyspnea, apnea and wheezing. Vivek/Lymph Negative Blood clots. Constitutional Negative Chills and fever. Cardio Negative Chest pain, irregular heartbeat/palpitations, leg swelling and pacemaker. GI Negative Abdominal pain, constipation, diarrhea, nausea and vomiting. Neuro Negative Dizziness, headache and seizures. Psych Negative Anxiety and depression. Vital Signs Height Time ft in cm Last Measured Height Position % 10:14 AM 5.0 7.00 170.18 03/13/2016 Weight/BSA/BMI Time lb oz kg Context % BMI kg/m2 BSA m2 10:14 AM 218.20 98.974 dressed without shoes 34.17 Blood Pressure Time BP mm/Hg Position Side Site Method Cuff Size 10:14 AM 110/68 sitting left arm manual adult large Temperature/Pulse/Respiration Time Temp F Temp C Temp Site Pulse/min Pattern Resp/ min 10:14 AM 98.0 36.7 temporal 66 regular 20 Pulse Oximetry/FIO2 Time Pulse Ox (Rest %) Pulse Ox (Amb %) O2 Sat O2 LPM Timing FiO2 % L/min Delivery Method 10:14 AM 96 Pain Scale Time Pain Score Method 10:14 AM 7/10 Numeric Pain Intensity Scale Measured By Time Measured by 10:14 AM Yeni aPnchal MA Physical Exam Exam Findings Details Comments Gen.: Patient was examination and appears to be a moderate muscle skeletal discomfort HEET: Normal with full range of motion Chest : Clear P and A Heart: Regular rate and rhythm Abdomen; soft non-tender normal bowel sounds Ext.: 5/5 strength. Numbness in the L3 and L4 distribution. There is diminished patellar reflex. Negative straight leg maneuver Back: There is some mild involuntary paraspinous muscle spasm. Radiographic imaging: Review the patient's MRI scan of the lumbar spine shows evidence of severe lumbar spinal stenosis at L2-3 and L3 4. Assessment/Plan # Detail Type Description 1. Assessment Lumbar stenosis with neurogenic claudication (M48.06). 2. Assessment Preoperative examination (Z01.818). Patient Plan We including your Attending Surgeon have discussed the risks and benefits associated your scheduled procedure which you have verbally acknowledged understanding including but not limited to the possibility of an outcome that we are unable to predict or was not mentioned. 1. You are scheduled for a METrx or minimal access surgery involving bilateral segmental decompression L2-3 & L3-4 levels from the left side & harvests of subcutaneous fat for epidural graft from separate incision with Dr. Jack Vera M.D. at [facility] on 03/28/2016. 2. Check in time is 6 AM. Also please ignore instructions below if told otherwise by your preadmission nurse or if you do not take the medications listed below. 3. Nothing to eat after midnight the night before surgery. You may take all of your "approved" medications with small sips of water. Remember to take your a.m. hypertension medication if it is a beta liana and ends in "olol. Otherwise ask your doctor if you need to hold your a.m. hypertension medication. 4. No aspirin, ibuprofen, Naprosyn, or other NSAIDs starting 7 days prior to surgery. 5. Please stop Warfarin/Coumadin or other blood thinners such as Plavix, Aggrenox, or Xarelto 7 days prior to your surgical procedure and follow specific instructions from your prescribing provider. 6. Please stop Lovenox bridging in the morning one day prior to procedure. 7. Please stop Suboxone/Buprenorphine at least 4 days prior to procedure. 8. Go to the hospital today to get her preoperative testing done. Take the order form to the surgery desk on the second floor of the [facility], [facility] (main entrance next to the emergency entrance). I will notify you if there is any test results that require further workup prior to surgery. 9. Follow the instructions you were given today, use the cleansing cloths the night before as well as the morning of her surgery. 10. If you are prescribed inhalers, CPAP or BiPAP machines you use at home bring along with you to the hospital. 11. ONLY If you take medications for Diabetes: If you have an insulin pump continue lowest (typically night-time) basal rate into the a.m. If you do not have a pump check h your a.m. blood sugar and hold insulin if BS less than 100. If you are taking long-acting, intermediate acting (NPH) or 70/30 preparation : Take half on day of procedure. If you are taking ultra long-acting insulin such as glargine, Lantus either at night or in the a.m. continue as scheduled ( including day of surgery). If you take short acting regular insulin (insulin not delivered via pump) discontinue on day of procedure. 12. Please call if you have any questions before your surgery: [phone]. Today's instructions/counseling include(s) Pre-operative instructions given to the patient and or legal teleservices representative(s) orally and in writing. 13. Our office will contact you if there are any test results that require further workup prior to surgery. Provider Plan The patient's history and examination as well as radiological findings were reviewed with Dr. Jack Vera M.D. and conveyed the patient in detail. The findings are consistent with lumbar spinal stenosis with neurogenic claudication and are most likely the cause of the patient's severe, intractable , & debilitating lower back pain radiating to the left >right lower extremities with numbness, & paresthesias worse with standing up straight or walking & better leaning forward or sitting down. The patient has failed extensive conservative treatment for this condition. The treatment options were discussed with the patient. The options include attempt to live with the condition, reattempt conservative treatment, try a pain management intervention / injection or consider a surgical intervention. We are not extremely optimistic that further conservative treatment, pain management intervention and/or injection will adequately resolve the patient's symptoms of severe, intractable, & debilitating lower back pain radiating to the left >right lower extremities with numbness, & paresthesias worse with standing up straight or walking & better leaning forward or sitting down. Therefore we recommend METrx or minimal access surgery involving bilateral segmental decompression L2-3 & L3-4 levels from the left side & harvests of subcutaneous fat for epidural graft from separate incision. The patient was provided/offered educational materials pertaining to their diagnosis and the above discussed procedure. We discussed the risks and benefits associated with this surgery. A spine model was used to explain the nature of this type of surgery. The risk of the required anesthesia was also mentioned including but not limited to organ failure such as heart attack, pneumonia and stroke even . The risk of this type of surgery was also mentioned. Including but not limited to an unsuccessful outcome, residual symptoms, referred or radiating posterior spinal myofascial inflammatory pain or spasm, post operative instability, instrumentation failure, sensory changes, blood loss, blood clots, wound infection, spinal cord or nerve damage, CSF or lymph leak, damage to neighboring structures such as the abdominal vasculature, bowel, ureter, and bladder resulting in temporary or permanent dysfunction, even disability, paralysis, and . The recovery of this type of surgery was also mentioned. The chances for improvement of the neurogenic claudication related symptomatology at one year is 70%. The chances of improvement of local mechanical lower back pain is 50%. The patient verbalized understanding all the risks and benefits, knowing that it is impossible to predict or guarantee every surgical outcome; and would like to proceed with the above discussed procedure anyways. Surgery is scheduled for 03/28/2016 The standard [facility] preoperative screening tests, medicine restrictions, and logistical protocols apply. Any preoperative testing is within normal limits to undergo the above discussed procedure unless otherwise noted in the medical record. Medications (added, continued or stopped this visit): Start Date Medication Directions Stop Date 03/27/2016 baclofen 10 mg tablet take 1 tablet by oral route every 8 hours as needed for spasm 03/15/2015 meloxicam 7.5 mg tablet take 1 tablet by oral route 2 times every day with food prn hand pain 02/29/2016 meloxicam 7.5 mg tablet take 1 tablet by oral route 2 times every day 03/27/2016 Percocet 5 mg-325 mg tablet take 1 - 2 tablet by oral route every 4 - 6 hours as needed for pain Prozac take 2 capsule by oral route every day Vitamin B-12 Vitamin D3 1,000 unit capsule 03/15/2015 Voltaren 1 % topical gel apply (2G) by topical route 2 times every day to the affected area(s) Counseling/Educational Factors: Counseling / educational factors reviewed. Counseling / educational factors reviewed. This is a visit of 60 minutes. 50 minutes were spent counseling. The patient was checked out at 11:55 AM. This document may have been created using voice recognition software or other electronic means and may contain inadvertent er manager errors. Provider: Gordy BROUSSARD 03/13/2016 12:26 PM Document generated by: Gordy Mtz 03/13/2016 12:25 PM CC Providers: [id number] [place] [address] kim romeo Hospital Course: Hospital Course: The patient was admitted through same day surgery and subsequently underwent a METRx microscopic bilateral lumbosacral decompression, L2-L3 & L3-L4, with lateral recess decompression of the L2, L3, & L4 nerve roots bilaterally; approaching from the left, with placement of epidural fat graft obtained from a separate subcutaneous incision. The patient tolerated the procedure well. The patient was then was transferred to PACU and then to the OSC floor. The patient was admitted for postoperative pain control, PT/OT, supervised for asthma, & chronic pain co-morbidities with nurse monitoring, continuous pulse oximetry, and discharge planning. The Patient's overnight course was within normal limits except for mild hypotension improved with fluids. Currently the patient has complaints of left lower extremity numbness and foot weakness postoperatively. The patient did have numbness preoperatively in the left lower extremity and similar reaction after her last lumbar surgery. Although physical therapy has reported clearing her for disposition home & outpatient physical therapy to help with ambulation. She does report that her pain is well-controlled & she can stand up straighter without pain. The patient denies headache, severe sore throat or dysphagia, chest pain, shortness of breath, abdominal pain, nausea, vomiting, constipation, diarrhea, or any other then the above new onset &/or location of pain, weakness or paresthesias aside from the surgical site. PHYSICAL EXAM This is a well developed, well nourished, obese female who is alert, cooperative , and appears to be in no acute distress with a pleasant affect & euthymic mood. Exam of the head is normocephalic. PERRL, EOMI, without facial droop, hearing grossly intact, nostrils patent, oral cavity and pharynx normal. Voice is within normal limits Exam or the heart reveals regular rate and rhythm without audible murmurs The lungs are clear to auscultation bilaterally. The abdomen is non- tender and non-distended. Exam of the lumbar surgical wound reveals that it is clean, dry, and intact; without signs of infection, inflammation, and/or hematoma. There will be less than 30 mL. Of output from her surgical drain in an 8 hour period prior to discharge. Gross exam of the extremities reveals strength & sensation are grossly intact within the patient's normal baseline limits except numbness in her right medial ankle with normal strength, left lower extremity L3-S1 numbness from the knee down, strength in the LLE HF/Quad/Lauren 4/5 & TA/EHL 3-/5. Patellar DTR's: Left = 1 & right = 2. Remaining DTR's WNL. The patient was eventually able to get out of bed and ambulate within acceptable limits. Therapy services made recommendations for disposition. Flatus was appreciated and the patient was able to void without significant difficulty. The pain was gradually under control. The patient was afebrile on discharge. The patient's incision(s) was clean, dry and intact. The dressing was changed to the Surgeon's specifications. The output from the wound drain will be a rate less then 30cc's in an 8 hour period prior to her discharge and therefore the drain will then be removed. The patient progressed well with rehabilitation and was subsequently discharged to home in stable condition. If the patient is unable to meet the parameters specified in her discharge orders she will remain overnight for reevaluation & likely discharge in the a.m. The patient verbally affirmed understanding when given clear instruction regarding the postoperative care and follow-up including but not limited to seeking immediate medical attention for chest pain, shortness of breath, oversedation, fall, a temperature greater than 101.5 F, severe uncontrolled pain or weakness, loss of bowel or bladder function, choking, lots or drainage, pus discharge or constipation. All questions were answered. Disposition: Home in stable condition. Follow-up Plan: Follow-up with physician food service assistant in outpatient neurosurgical clinic in 1 week for wound check. Albuterol HFA (Proair HFA) 8.5 Gm Hfa.aer.ad 2 PUFFS INHALATION Q4H PRN PRN For Shortness of Breath (Reported) Beclomethasone Dipropionate (Qvar) 8.7 Gm Aer.w.adap 1 PUFF INHALATION BID ( Reported) Cholecalciferol (Vitamin D3) (Vitamin D3) 1,000 Unit Tab.chew 1,000 UNIT PO DAILY (Reported) Cyanocobalamin (Vitamin B-12) (Vitamin B-12) 500 Mcg Tab.subl 1,000 MCG SL DAILY (Reported) Diclofenac Gel (Voltaren Gel) 100 Gm Tube 1 APPLIC TOPICAL BID (Reported) Fluoxetine (Prozac) 10 Mg Capsule 10 MG PO DAILY (Reported) Meloxicam (Meloxicam) 7.5 Mg Tablet 7.5 MG PO BID (Reported) oxyCODONE-Acetaminophen 5-325 mg (oxyCODONE-Acetaminophen 5-325 mg) 1 Each Tablet 1-2 TAB PO Q4-6H PRN PRN For Pain (Reported) Discharge Medications: Prescribed and the patient's preoperative appointment plus Medrol Dosepak sent electronically to her pharmacy. Attending Statement: All documentation reviewed & orders authorized by Dr. Jack Vera M.D. copies to: Rosalba Stearns MD, Scott PA-C Mar 29, 2016 09:55
--- NOTE | 2016-03-29 11:16 | NUR ---
Social Work- Screening, discharge: Data: Pt is a 60 year old female admitted for lumbar stenosis with neurogenic claudica per H&P. Pt's insurance is [employer] and PCP is Rosalba Stearns MD. SW met with patient briefly at bedside to confirm discharge plan. Pt is alert and oriented x3. Pt resides in [facility] where she remains independent with her ADLs. Pt has all necessary DME. Pt states outpt PT services are coordinated. Pt has no LTC or VA benefits. SW educated patient regarding DPOA/Advance Directive. Pt has not completed this paperwork. SW left paperwork for pt to fill out and encouraged pt to bring completed copy to be put on file at hospital. Pt is medically stable to discharge home with sister today. No discharge needs. Assessment: [place]. Plan: Pt to be discharged today. Pt to discharge home with sister to transport via POV. No discharge needs. Namrata Cárdenas STEELWORKER
--- NOTE | 2016-03-29 13:19 | NUR ---
NANCY Drain at 1035hrs rounding, noticed that NANCY drain was not maintaining suction. there was a small leak at insertion site. tegaderm applied and leak was sealed. 12 ml out of NANCY from 830am until 1pm. Gordy ROBLERO was notified. cleared for discharge.
--- NOTE | 2016-03-29 13:50 | NUR ---
Post op dressing removed with minimal drainage. Incision area cleaned with betadine over steri strips, air dried, and new dressing placed. NANCY drain removed intact. 2x2 gauze placed and covered with paper tape. Patient tolerated dressing change and removal of drain. Instructed patient to keep incision covered and dry.
--- NOTE | 2016-03-29 14:41 | NUR ---
Discharge Discharge instructions given to patient and verbalizes understanding. Follow up appointment 04/05, patient aware. No new rx given upon discharge. IV removed and intact. Patient states no questions at this time. Discharged with sister via private vehicle.
[2016-07-02] MEDS ORDERED: CYCL5TAB PO (13:49)
== END 2016-03-29 14:37 | disposition home or self-care (01) ==
LOC: SAS 05:36 → OSC 15:11 → SAS 03-29 14:37
PROVIDERS: ATTEND Neurological Surgery
DX: M48.06 Spinal stenosis, lumbar region (principal); J45.909 Unspecified asthma, uncomplicated; G89.29 Other chronic pain; Z79.891 Long term (current) use of opiate analgesic
CPT/HCPCS: 20926; 63047; 63048; 72100; 76000; 94640; 97162; J0131; J0690; J1100; J2175; J2250; J2405; J2710; J3010; J7030; J7120; Q0177

== ENCOUNTER 2016-07-05 11:21 | Emergency (ER) | payer OTHER ==
[~2016-07-05] VITALS: Ht 170.2 cm; Wt 97.0 kg
[~2016-07-05 11:21] MED LIST changes: -BACL10TA PO; -Bacitracin 50,000 unit Inj IRRIGATION ONE; -Bupivacaine Liposome 1.3% 20 mL Inj INFILTRATE ONE; +CYCL5TAB PO; -CeFAZolin Inj 2 GM in IV Premix 1 EACH IV ONE; -Thrombin Powder 5,000 Unit TOPICAL ONE
[2016-07-05 11:27] VITALS: BP 122/76; PULSE 60; RESP 14; O2SAT 100
--- NOTE | 2016-07-05 12:58 | ED.REPORT ---
HPI-Back Pain 40 and Over Date of Service July 05, 2016 ED Provider: Dave Bruce PA-C Rosalinda is a 61-year-old female with a history of a lumbar decompression clinic with a chief complaint of back pain. Reports pain in her lower back for approximately 5 days with radiation to her right leg to her feet. Seen in this department 5 days ago. Returns due to increasing pain this morning while walking to her car. The pain feels like it is in her vagina, and the back of her right knee. Admits a history of left foot drop since her surgery numbness in bilateral lower extremities, which is new on the right. Denies fever, DM, HIV , organ transplant, immunosuppression, recent surgery, recent infection, surgical implants and IV drug use. Denies bowel/bladder dysfunction and saddle anesthesia. Denies urinary symptoms. Nursing Notes Stated Complaint: BACK PAIN Chief Complaint: Back Pain or Injury Nursing Notes Reviewed: Yes Allergies: Coded Allergies: Sulfa (Sulfonamide Antibiotics) (Verified Allergy, Unknown, UNKNOWN, ) does not remember codeine (Verified Adverse Reaction, Severe, N&V, 07/05/16) Scheduled Beclomethasone Dipropionate (Qvar) 8.7 Gm Aer.w.adap 1 PUFF INHALATION BID Cholecalciferol (Vitamin D3) (Vitamin D3) 1,000 Unit Tab.chew 1,000 UNIT PO DAILY Cyanocobalamin (Vitamin B-12) (Vitamin B-12) 500 Mcg Tab.subl 1,000 MCG SL DAILY Diclofenac Gel (Voltaren Gel) 100 Gm Tube 1 APPLIC TOPICAL BID Fluoxetine (Prozac) 10 Mg Capsule 10 MG PO DAILY Meloxicam (Meloxicam) 7.5 Mg Tablet 7.5 MG PO BID Prednisone (PredniSONE) 20 Mg Tablet 40 MG PO DAILY Scheduled PRN Albuterol HFA (Proair HFA) 8.5 Gm Hfa.aer.ad 2 PUFFS INHALATION Q4H PRN PRN For Shortness of Breath Cyclobenzaprine (Cyclobenzaprine) 5 Mg Tablet 5 MG PO HS PRN PRN Spasm Hydrocodone-Acetaminophen 5-325 mg (Hydrocodone-Acetaminophen 5-325 mg) 1 Each Tablet 1-2 TABLET PO QID PRN PRN For Pain oxyCODONE-Acetaminophen 5-325 mg (oxyCODONE-Acetaminophen 5-325 mg) 1 Each Tablet 1-2 TAB PO Q4-6H PRN PRN For Pain General Time Seen by MD: 12:35 Chief Complaint Back pain Sudden in Onset?: No Past Medical History Past Medical History Lumbar spinal stenosis with radiculopathy Smoking History Former Smoker Ambulatory Status Independent Review of Systems General: Denies fever, chills, malaise. Otherwise as noted in HPI. Physical Exam General: Well appearing, well developed, well nourished, no acute distress. Head: Atraumatic, normocephalic. Eyes: No scleral icterus or injection. No discharge. Vision grossly intact. ENT: Voice clear, hearing grossly intact. Respiratory: Regular rate and rhythm. Breath sounds present, clear to auscultation and equal bilaterally. No respiratory distress. No increased work of breathing, speaks in complete sentences. Cardiovascular: Regular rate and rhythm, without murmur, gallop or rub. No pedal edema. Gastrointestinal: Abdomen flat and non-tender without guarding or rebound. Bowel sounds normoactive. Skin: Warm and dry. Back: Roughly 4 cm scar over the lumbar spine. Tender to palpation along the lumbar spine as well as bilateral SI and paraspinal. Right hip: Tender to palpation, full range of motion. Right knee: Nontender, full range of motion. Neurological: Able to rise from a seated position without assistance. Antalgic gait with a cane. Left dropfoot noted. Hip flexion, knee extension, ankle dorsiflexion and plantarflexion strength 5/5 B/L. Patellar and Achilles reflexes difficult to obtain B/L. Sensation to sharp and light touch reduced at medial leg, dorsal foot and lateral foot B/L. positive seated straight right leg raise on the right, negative seated cross straight leg raise. Psychological: Alert and oriented. Speech appropriate, linear and logical. Behavior appropriate. Initial Vital Signs Vital Signs (First) Date Time Temp Pulse Resp B/P Pulse Ox O2 Delivery O2 Flow Rate FiO2 07/05/16 11:27 36.2 60 14 122/76 100 Room Air Initial VS: Vital signs normal Re-Eval/Medical Decision Med Decision/Clinical Course 61-year-old female with history of low back pain and radiculopathy as well as lumbar decompression presents with aggravation of back pain for approximately 5 days. Seen in this department 2 days ago. Discharged with [place] pre-and advised to use her prescribed pain medications. Reports worsening pain today, out of pain medications. Appointment to see her primary care provider on Sunday. Complains of weakness, numbness in her right leg. History of pre- existing foot drop and left leg. Denies fever, loss of bowel/bladder, saddle anesthesia. Pain is improved with [place], prednisone and ibuprofen. Physical examination reveals good lower extremity strength, reduced reflexes bilaterally, reduced sensation to light touch in the feet. Patient is able to rise from seated and ambulate with a cane, left foot drop is noted. Vital signs are normal, afebrile. I discussed this with Dr. Ruiz. Back pain is without red flag symptoms for cauda equina, infection, hematoma, trauma, AAA, cancer. I believe this is an aggravation of her pre-existing radiculopathy. I do not see indication for further imaging at this time as I do not detect progressive neurological symptoms. She is stable to be discharged home. Prescribed continued prednisone , Orient and advised [id number] analgesia. Advise primary care follow-up as planned, provided emergency return precautions. Patient states she feels ready to be discharged to home, verbalizes understanding of and agreement to the plan. Discharge & Departure Impression: Primary Impression: Sciatica of right side Additional Impression: Status post lumbar laminectomy Disposition: Home Discharge Condition All VS Reviewed: Yes Condition: Stable Additional Instructions: Evaluation for low back pain in the emergency department consists of history and physical examination both of which are reassuring that this is unlikely to be an immediately dangerous condition and rather aggravation of your pre- existing condition. I believe you are stable safely discharged. I advise baseline pain control 500 mg naproxen taken every 12 hours. I will give you a small prescription for hydrocodone/acetaminophen 5/325 to be taken for pain not controlled by the naproxen. I will also give a prescription for prednisone 40 mg to be taken once a day for the next 3 days. Follow-up with your primary care provider as planned on Sunday. Return to the emergency department for new or worsening symptoms including increasing weakness, loss of bowel control, inability to urinate or numbness between your legs Referrals: Rosalba Stearns MD (PCP) EDSupervising Provider for APC: Tito Avitia DO copies to: Rosalba Stearns MD, Seth PA-C July 05, 2016 12:58
[2016-07-05] MEDS ORDERED: predniSONE 20 mg Tablet PO ONE (13:00)
[2016-07-05] MEDS ORDERED: HYDROcodone-APAP 5-325 mg Tablet PO ONE (13:00)
[2016-07-05 13:39] VITALS: BP 125/69; PULSE 64; RESP 17; O2SAT 98
[2016-07-05] MEDS ORDERED: HYDR-4003 PO (14:09)
[2016-07-05] MEDS ORDERED: PRE20 PO (14:09)
== END 2016-07-05 14:22 | disposition home or self-care (01) ==
LOC: SED 11:21
DX: M54.31 Sciatica, right side (principal); Z87.891 Personal history of nicotine dependence; Z98.890 Other specified postprocedural states; Z79.52 Long term (current) use of systemic steroids; Z79.51 Long term (current) use of inhaled steroids; Z88.2 Allergy status to sulfonamides; Z88.5 Allergy status to narcotic agent

== ENCOUNTER 2016-07-14 11:04 | Emergency (ER) | payer OTHER ==
[~2016-07-14] VITALS: Ht 170.2 cm; Wt 100.0 kg
[~2016-07-14 11:04] MED LIST changes: +HYDR-4003 PO; +PRE20 PO
[2016-07-14 11:30] VITALS: BP 144/82; PULSE 70; RESP 16; O2SAT 98
--- NOTE | 2016-07-14 12:11 | ED.REPORT ---
HPI-Back Pain 40 and Over Date of Service Jul 14, 2016 ED Provider: Tito Avitia DO 61 y/o female with a hx of lumbar spinal stenosis with radiculopathy presents to the ED complaining of right sided lower back pain, onset two weeks ago that radiates down her right leg. The pt describes it as a shooting pain. Associated sx include numbness in her right leg below the knee. She denies fever and any other symptoms. This is her third visit to the ED with the same complaint. The pt had a spine surgery performed by Dr. Vera in 4 months ago and subsequently experienced left foot drop and numbness blow the left knee. Nursing Notes Stated Complaint: BACK PAIN Chief Complaint: Back Pain or Injury Nursing Notes Reviewed: Yes Allergies: Coded Allergies: Sulfa (Sulfonamide Antibiotics) (Verified Allergy, Unknown, UNKNOWN, ) does not remember codeine (Verified Adverse Reaction, Severe, N&V, 07/05/16) Scheduled Beclomethasone Dipropionate (Qvar) 8.7 Gm Aer.w.adap 1 PUFF INHALATION BID Cholecalciferol (Vitamin D3) (Vitamin D3) 1,000 Unit Tab.chew 1,000 UNIT PO DAILY Cyanocobalamin (Vitamin B-12) (Vitamin B-12) 500 Mcg Tab.subl 1,000 MCG SL DAILY Diclofenac Gel (Voltaren Gel) 100 Gm Tube 1 APPLIC TOPICAL BID Fluoxetine (Prozac) 10 Mg Capsule 10 MG PO DAILY Meloxicam (Meloxicam) 7.5 Mg Tablet 7.5 MG PO BID Prednisone (PredniSONE) 20 Mg Tablet 40 MG PO DAILY Prednisone (Deltasone) 20 Mg Tablet 20 MG PO DIRECTED 40mg daily for 3 days, 30mg daily for 3 days, 20mg daily for 3 days, 10mg daily for 3 days Scheduled PRN Albuterol HFA (Proair HFA) 8.5 Gm Hfa.aer.ad 2 PUFFS INHALATION Q4H PRN PRN For Shortness of Breath Cyclobenzaprine (Cyclobenzaprine) 5 Mg Tablet 5 MG PO HS PRN PRN Spasm Hydrocodone-Acetaminophen 5-325 mg (Hydrocodone-Acetaminophen 5-325 mg) 1 Each Tablet 1-2 TABLET PO QID PRN PRN For Pain oxyCODONE-Acetaminophen 5-325 mg (oxyCODONE-Acetaminophen 5-325 mg) 1 Each Tablet 1-2 TAB PO Q4-6H PRN PRN For Pain oxyCODONE-Acetaminophen 5-325 mg (oxyCODONE-Acetaminophen 5-325 mg) 1 Each Tablet 1 TAB PO Q4H PRN PRN For Pain General Time Seen by MD: 12:08 Chief Complaint Back pain (right sided) Hx Obtained From: Patient Arrived By: Walk-in Sudden in Onset?: No Onset Occurred: More than a week ago... (2 weeks) Symptom Duration: Since onset Location: : Perispinal lumbar Quality: Painful Radiation: : Right leg above knee: Right leg below knee Severity: Current: Severe Severity: Maximum: Severe Recent Healthcare: Recent doctor visit Similar Sx Previous: Yes Past Medical History Past Medical History Lumbar spinal stenosis with radiculopathy Ventricular trigeminy Past Surgical History shoulder surgery neck surgery gastric bypass right knee menisectomy Reports: Hysterectomy Smoking History Former Smoker Social History Other Social History: Good social support Ambulatory Status Independent Review of Systems Constitutional: Denies: Fever Musculoskeletal: Reports: Back pain (right side), Extremity pain (right leg and buttock) Neurologic: Reports: Numbness (right leg, below the knee) Complete sys rev & neg: except as marked. Physical Exam Initial Vital Signs Vital Signs (First) Date Time Temp Pulse Resp B/P Pulse Ox O2 Delivery O2 Flow Rate FiO2 07/14/16 11:30 36.4 70 16 144/82 98 Room Air Initial VS: Reviewed Head / Eyes: Atraumatic, Normocephalic Extremities: Vascular intact, Neuro intact, No swelling Skin: Warm, Dry, No cyanosis General/Constitutional: Awake, Alert Distress / Hydration: Positive: Distress severe Respiratory / Chest: Atraumatic, Breath sounds NL, No respiratory distress, No wheezing Cardiovascular: Heart rate NL, Regular rhythm, Peripheral circulation NL, Pulses = bilaterally Abdomen: Atraumatic, Soft, Non-tender Back: Atraumatic Lumbar region tenderness Neurologic: Oriented X3, Speech NL, No motor deficits Negative straight leg raise to 80 degrees. Intact motor function from L1 to S1 in right leg. Anesthesia diffusely from left knee down. Ankle / Foot: No deformity, Neurologic intact, Vascular intact Unable to extend left knee, plantar flex and dorsi flex left foot. Interpretation & Diagnostics Lab Results Interpretation Test 07/14/16 11:25 Hold Purple Top Tube Received (Received) Hold Blue Top Tube Received (Received) Hold [place] Top Tube Received (Received) Re-Eval/Medical Decision Med Decision/Clinical Course Symptoms are nonacute and do not seem consistent with a lumbar radiculopathy, there has not been any clinical neurologic change since prior to the MRI a few days ago and the MRI is reassuring. Discussed with both neurosurgery and the primary care doctor's office who agreed to help with follow-up. Return and follow-up precautions given. A few extra Percocet were prescribed. Re-Evaluation/Progress : Time of Eval: 14:14 Re-Evaluation/Progress Note: Rechecked pt. Discussed lab results, diagnosis and plan to discharge. Pt understands and agrees with the plan. F/U instructions and RTER warning given. All questions addressed. Consultation #1: Referral / Consult Name: Yemi Huddleston MD Call Returned at: 12:37 [employer] Equipment Repairer: Will see in office, Agrees with eval, Agrees with plan Note: Dr. Huddleston says there is no concern on MRI. The pt needs routine outpatient follow up in the clinic. Consultation #2: Referral / Consult Name: Lindsay Ariza MD [employer] Equipment Repairer: Agrees with plan Counseled Regarding: Diagnosis, Lab results, Need for follow-up, When/why to return to ED Discharge & Departure Impression: Primary Impression: Low back pain Disposition: Home Discharge Condition All VS Reviewed: Yes Condition: Stable Patient Instructions: Low Back Strain (ED) Additional Instructions: Increase your oxycodone to 1 tablet every 4 hours as needed. Continue your other medications. Follow-up with your regular doctor. Follow-up with a neurosurgeon for evaluation of your lumbar back pain. Return to the ER as needed for progressive numbness or weakness in the lower extremities, loss of bowel or bladder function, or other concerns. Referrals: oRsalba Stearns MD (PCP) Scribe Attestation Portions of this note were transcribed by Bren Dela Cruz. I, , personally performed the history, physical exam and medical decision-making;I reviewed and confirmed the accuracy of the information in the transcribed note. Signed by Lopez Rios. 07/14/16 14:38 copies to: Rosalba Stearns MD, Timothy S DO Jul 14, 2016 12:10 Bren Dela Cruz Jul 14, 2016 12:31
[2016-07-14] MEDS ORDERED: Ketorolac 15 mg/mL Inj IVPUSH ONE (13:50)
[2016-07-14] MEDS ORDERED: OXYC1TAB24 PO (14:19)
[2016-07-14] MEDS ORDERED: PRED-508 PO (14:19)
[2016-07-14 15:31] VITALS: BP 132/82; PULSE 71; RESP 15; O2SAT 100
== END 2016-07-14 14:19 | disposition home or self-care (01) ==
LOC: SED 11:04 → EDBD 11:04 → SED 14:19
DX: M54.5 Low back pain (principal); R20.2 Paresthesia of skin; Z98.84 Bariatric surgery status; Z87.891 Personal history of nicotine dependence; Z87.39 Personal history of other diseases of the musculoskeletal system and connective tissue; Z79.52 Long term (current) use of systemic steroids; Z88.2 Allergy status to sulfonamides; Z88.5 Allergy status to narcotic agent
CPT/HCPCS: 96372; 96374; 96375; 99284; J1885; J3360

== ENCOUNTER 2016-10-01 16:56 | Emergency (ER) | payer MEDICAID, OTHER ==
[~2016-10-01 16:56] MED LIST changes: +PRED-508 PO
[2016-10-01 17:04] VITALS: BP 105/72; PULSE 78; RESP 20; O2SAT 96
--- NOTE | 2016-10-01 17:30 | DRSVH ---
PROCEDURE: X-RAY LEFT FOOT COMPLETE, MINIMUM THREE VIEWS ([id number]) INDICATIONS: injury, pain TECHNIQUE: 3 views of the foot were acquired. COMPARISON: [facility], CR, XR FOOT 3VW LT, 01/15/2015, 9:37. FINDINGS: Bones: No fractures or dislocations. No suspicious bony lesions. Plantar and Achilles calcaneal sp urring. Midfoot degenerative change. Tarsonavicular joint osteophyte. Soft tissues: No tibiotalar joint effusion. Achilles tendon appears normal. IMPRESSION: No acute fractures or dislocations. Dictated by: Osman Wood M.D. on 10/01/2016 at 17:27 Approved by: Osman Wood M.D. on 10/01/2016 at 17:28
--- NOTE | 2016-10-01 17:32 | ED.REPORT ---
HPI-Extremity Problem Lower Date of Service Oct 01, 2016 ED Provider: Cyrus Rodrigues MD A 61 year old female with a history of lumbar spinal stenosis with radiculopathy , ventricular trigeminy and back surgery in 03/2016 with subsequent foot drop presents to the ED complaining of left foot pain. The patient was chasing her dog two days ago and accidentally dragged her foot striking amount of furniture. The pt experienced bruising and pain around her left first toe soon after. The pain has persisted since and the pt is having increasing pain and difficulty while walking. Nursing Notes Stated Complaint: LEFT FOOT PAIN Chief Complaint: Extremity Trauma Nursing Notes Reviewed: Yes Allergies: Coded Allergies: Sulfa (Sulfonamide Antibiotics) (Verified Allergy, Unknown, UNKNOWN, ) does not remember codeine (Verified Adverse Reaction, Severe, N&V, 07/05/16) Scheduled Beclomethasone Dipropionate (Qvar) 8.7 Gm Aer.w.adap 1 PUFF INHALATION BID Cholecalciferol (Vitamin D3) (Vitamin D3) 1,000 Unit Tab.chew 1,000 UNIT PO DAILY Cyanocobalamin (Vitamin B-12) (Vitamin B-12) 500 Mcg Tab.subl 1,000 MCG SL DAILY Diclofenac Gel (Voltaren Gel) 100 Gm Tube 1 APPLIC TOPICAL BID Fluoxetine (Prozac) 10 Mg Capsule 10 MG PO DAILY Meloxicam (Meloxicam) 7.5 Mg Tablet 7.5 MG PO BID Prednisone (PredniSONE) 20 Mg Tablet 40 MG PO DAILY Prednisone (Deltasone) 20 Mg Tablet 20 MG PO DIRECTED 40mg daily for 3 days, 30mg daily for 3 days, 20mg daily for 3 days, 10mg daily for 3 days Scheduled PRN Albuterol HFA (Proair HFA) 8.5 Gm Hfa.aer.ad 2 PUFFS INHALATION Q4H PRN PRN For Shortness of Breath Cyclobenzaprine (Cyclobenzaprine) 5 Mg Tablet 5 MG PO HS PRN PRN Spasm Hydrocodone-Acetaminophen 5-325 mg (Hydrocodone-Acetaminophen 5-325 mg) 1 Each Tablet 1-2 TABLET PO QID PRN PRN For Pain oxyCODONE-Acetaminophen 5-325 mg (oxyCODONE-Acetaminophen 5-325 mg) 1 Each Tablet 1-2 TAB PO Q4-6H PRN PRN For Pain oxyCODONE-Acetaminophen 5-325 mg (oxyCODONE-Acetaminophen 5-325 mg) 1 Each Tablet 1 TAB PO Q4H PRN PRN For Pain General Time Seen by MD: 17:31 Chief Complaint Foot injury left Hx Obtained From: Patient Arrived By: Walk-in Onset Occurred: 2 days ago Symptom Duration: Since onset Recent Healthcare: Recent doctor visit Similar Sx Previous: No Past Medical History Past Medical History Lumbar spinal stenosis with radiculopathy Ventricular trigeminy Foot drop Past Surgical History shoulder surgery neck surgery gastric bypass right knee menisectomy back surgery 03/2016 with subsequent foot drop Reports: Hysterectomy Smoking History Former Smoker Social History Other Social History: Good social support Ambulatory Status Cane Review of Systems Musculoskeletal: Reports: Extremity pain, Denies: Neck pain Skin: Reports Bruising, Denies Rash Complete sys rev & neg: except as marked. Respiratory: Denies: Non-productive cough, Shortness of breath Cardiovascular: Denies: Chest pain GI: Denies: Abdominal pain, Vomiting Physical Exam Initial Vital Signs Vital Signs (First) Date Time Temp Pulse Resp B/P Pulse Ox O2 Delivery O2 Flow Rate FiO2 10/01/16 17:04 37.1 78 20 105/72 96 Room Air Initial VS: Reviewed Lower Extremity / Pelvis / MS: Atraumatic, Full range of motion Ankle / Foot: Neurologic intact, Vascular intact resolving purple ecchymosis about the left great toe on the dorsum and base cap refill normal skin and sensation intact no palpable bony deformity General/Constitutional: Awake, Alert Respiratory / Chest: Atraumatic, Breath sounds NL, Breath sounds = bilat, No respiratory distress Cardiovascular: Heart rate NL, Regular rhythm, Heart sounds NL, No gallop, No murmurs, No rubs Skin: No rash, Warm, Dry Neurologic: Oriented X3, Speech NL, No motor deficits, No sensory deficits Head / Eyes: Atraumatic, Normocephalic, PERRL, EOMI ENT: Atraumatic, Airway patent, Mucous membranes moist Neck: Atraumatic, Supple, Full range of motion Abdomen: Atraumatic, Soft, Non-tender Back: Atraumatic, Full range of motion Upper Extremity / MS: Atraumatic, Full range of motion Psychiatric: Affect NL, Mood NL Interpretation & Diagnostics X-Ray Interpretation Xray Interpretation: IMPRESSION: No acute fractures or dislocations. Dictated by: Osman Wood M.D. on 10/01/2016 at 17:27 Approved by: Osman Wood M.D. on 10/01/2016 at 17:28 X-Ray Ordered: Foot left Interpretation / Wet Read by: Interpret - Radiologist Re-Eval/Medical Decision Med Decision/Clinical Course Patient is a 61-year-old female who presents with injury of her left great toe that occurred 2 days ago. She is complaining of bruising about her toe and pain. Left Foot X-Ray: IMPRESSION: No acute fractures or dislocations. At this time overall presentation is most consistent with ecchymosis and sprain type injury. No evidence of fracture. She is neurovascularly intact. Skin is intact and there are no signs of infection. Advised to take ibuprofen, elevate the foot and apply ice packs. Prior to discharge follow-up and return precautions were reviewed in detail with the patient who verbalized understanding and agreement with the plan. The patient was discharged in stable condition. Source of Hx: Old records Re-Evaluation/Progress : Time of Eval: 17:31 Patient Status: Condition improved Re-Evaluation/Progress Note: Pt informed of the diagnosis and plan for discharge during the initial interview. The diagnosis and plan for discharge are discussed. The pt understands and agrees with the plan. All questions are addressed at this time. Counseled Regarding: Diagnosis, Lab results, Need for follow-up, When/why to return to ED Discharge & Departure Impression: Primary Impression: Toe pain Laterality: left Qualified Code: M79.675 - Pain in left toe(s) Additional Impressions: Toe sprain Encounter type: initial encounter Qualified Code: S93.509A - Unspecified sprain of unspecified toe(s), initial encounter Traumatic ecchymosis of foot Encounter type: initial encounter Laterality: left Qualified Code: S90.32XA - Contusion of left foot, initial encounter Disposition: Home Discharge Condition All VS Reviewed: Yes Condition: Stable Additional Instructions: Thank you for seeking care at the emergency room. Our primary goal today in the Emergency Department was to evaluate you for any life-threatening conditions. Your evaluation was reassuring. Wear the carrie tape and flat soled shoe. Take ibuprofen or Tylenol for pain. You should follow-up with your primary doctor in the next week. You should return to the Emergency Department immediately if you develop increasing pain, swelling, fevers, weakness or any other concerning signs or symptoms. Thank you for letting us partake in your care today. Referrals: Rosalba Stearns MD (PCP) Scribe Attestation Portions of this note were transcribed by Omi Dumas. I, Dr. Rodrigues personally performed the history, physical exam and medical decision-making; I reviewed and confirmed the accuracy of the information in the transcribed note. copies to: Rosalba Stearns MD, Beck O MD Oct 01, 2016 17:32 OMI DUMAS Oct 01, 2016 18:32
[2016-10-01 18:58] VITALS: BP 121/80; PULSE 67; O2SAT 97
== END 2016-10-01 18:59 | disposition home or self-care (01) ==
LOC: SED 16:56
DX: S90.112A Contusion of left great toe without damage to nail, initial encounter (principal); S93.502A Unspecified sprain of left great toe, initial encounter; M79.675 Pain in left toe(s); W22.8XXA Striking against or struck by other objects, initial encounter; Y93.02 Activity, running; Y92.009 Unspecified place in unspecified non-institutional (private) residence as the place of occurrence of the external cause; Y99.8 Other external cause status; Z87.891 Personal history of nicotine dependence; Z90.710 Acquired absence of both cervix and uterus; Z88.2 Allergy status to sulfonamides; Z88.5 Allergy status to narcotic agent